=== PATIENT | male | born 1990 | race African-American/Black ===

== ENCOUNTER 2018-03-09 15:04 | Emergency (ER) | payer SELFPAY ==
[~2018-03-09] VITALS: Ht 172.7 cm; Wt 64.0 kg
[2018-03-09] MEDS ORDERED: IBUPROFEN 400MG TABLET PO ONE (16:15)
[2018-03-09 16:53] VITALS: BP 113/60
== END 2018-03-09 17:33 | disposition home or self-care (01) ==
LOC: ER 16:09
DX: R07.89 Other chest pain (principal); F12.10 Cannabis abuse, uncomplicated
CPT/HCPCS: 71045; 93005; 99284; Z7610

== ENCOUNTER 2018-06-05 13:22 | Emergency (ER) | payer SELFPAY ==
[~2018-06-05] VITALS: Ht 172.7 cm; Wt 64.0 kg
[2018-06-05 15:50] VITALS: BP 121/68
== END 2018-06-05 15:58 | disposition home or self-care (01) ==
LOC: ER 13:22
DX: M25.531 Pain in right wrist (principal); M79.641 Pain in right hand; W22.8XXA Striking against or struck by other objects, initial encounter; F12.90 Cannabis use, unspecified, uncomplicated; Y93.89 Activity, other specified; Y92.89 Other specified places as the place of occurrence of the external cause
CPT/HCPCS: 73110; 73130; 99284

== ENCOUNTER 2018-07-14 17:26 | Emergency (ER) | payer SELFPAY ==
[~2018-07-14] VITALS: Ht 172.7 cm; Wt 64.0 kg
[2018-07-14 17:32] VITALS: BP 119/50
[2018-07-14] MEDS ORDERED: IBUPROFEN 600MG TABLET PO ONE (19:45)
[2018-07-14] MEDS ORDERED: HYDROCODONE/ACETAMINOPHEN 5/325MG TABLET PO ONE (19:45)
== END 2018-07-14 20:18 | disposition home or self-care (01) ==
LOC: ER 17:26
DX: S02.5XXA Fracture of tooth (traumatic), initial encounter for closed fracture (principal); F12.10 Cannabis abuse, uncomplicated; X58.XXXA Exposure to other specified factors, initial encounter; Y93.89 Activity, other specified; Y92.89 Other specified places as the place of occurrence of the external cause; Y99.8 Other external cause status
CPT/HCPCS: 99283